=== PATIENT | male | born 1955 | race American Indian/Alaskan Native ===

== ENCOUNTER 2022-02-08 06:02 | Day surgery (SDC) | payer MEDICARE ==
[2022-02-08] MEDS ORDERED: LACTATED RINGERS 1,000 ML ONE (07:22)
[2022-02-08] MEDS ORDERED: fentaNYL 100 MCG/2 ML INJ ONE (07:34)
[2022-02-08] MEDS ORDERED: LIDOCAINE MPF (2%) 20 MG/1 ML VIAL 5 ML ONE (07:34)
[2022-02-08] MEDS ORDERED: propofoL 200 MG/20 ML VIAL IV ONE (07:34)
[2022-02-08] MEDS ORDERED: ONDANSETRON 4 MG/2 ML INJ ONE (07:34)
[2022-02-08] MEDS ORDERED: HYDROmorphone 0.5 MG/0.5 ML INJ IV PRN ×2 (07:37)
--- NOTE | 2022-02-08 07:37 | Anesthesia Day of Surgery ---
Anesthesia Day of Surgery - Day of Surgery Patient Examined: Yes Patient H&P Reviewed: Yes Patient is NPO: Yes
--- NOTE | 2022-02-08 07:40 | Anesthesia Consultation ---
Anesthesia Consult and Med Hx Date of service: 02/08/22 - Airway Anesthetic Teeth Evaluation: Crowns ROM Head & Neck: Adequate Mental/Hyoid Distance: Adequate Mallampati Class: Class II Intubation Access Assessment: Good - Pre-Operative Health Status ASA Pre-Surgery Classification: ASA3 Proposed Anesthetic Plan: General - Pulmonary Hx Smoking: Yes (1/2 PPD X 40 YRS) Hx Respiratory Symptoms: Yes (Room air SpO2 88-89%) Hx Sleep Apnea: Yes (DX SLEEP APNEA, NO CPAP USE.) - Cardiovascular System Hx Hypertension: Yes (X 30 YRS) - Central Nervous System Hx Back Pain: Yes (HX NECK AND BACK PAIN- S/P SURGERIES) Hx Psychiatric Problems: No - Gastrointestinal Hx Gastroesophageal Reflux Disease: No - Endocrine Hx Renal Disease: Yes (Stones) Hx Non-Insulin Dependent Diabetes: Yes - Hematic Hx Anemia: No - Other Systems Hx Cancer: No Hx Obesity: Yes
[2022-02-08] MEDS ORDERED: LACTATED RINGERS 1,000 ML IV SCH (08:00)
[2022-02-08] MEDS ORDERED: MIDAZOLAM 2 MG/2 ML INJ IV NR (08:00)
[2022-02-08] MEDS ORDERED: ONDANSETRON 4 MG/2 ML INJ IV PRN (08:00)
[2022-02-08] MEDS ORDERED: ceFAZolin/Water 2 GM/20 ML 2 GM/20 ML SYRINGE IV ONE (08:20)
[2022-02-08] MEDS ORDERED: WATER FOR IRRIG STERILE 2000 ML IR ONE (08:45)
--- NOTE | 2022-02-08 09:16 | Short Stay Summary ---
Short Stay Documentation Date of service: 02/08/22 - History H&P: obtained from office - Allergies and Medications Current Medications: Allergies No Known Allergies Allergy (Verified 02/07/22 10:26) Home Medications Medication Instructions Recorded Confirmed Last Taken Type Cholecalciferol (Vitamin D3) 50,000 unit PO QWEEK 02/07/22 02/07/22 Unknown History [Vitamin D3 50,000UNIT CAP] Febuxostat [Uloric] 80 mg PO QDAY 02/07/22 02/07/22 Unknown History Losartan [Cozaar] 40 mg PO QDAY 02/07/22 02/07/22 Unknown History Oxycodone HCl/Acetaminophen 1 each PO PRN PRN 02/07/22 02/07/22 Unknown History [Oxycodone-Acetaminophen 10-325] Tamsulosin [Flomax] 0.4 mg PO QDAY 02/07/22 02/07/22 Unknown History amLODIPine [Norvasc] 10 mg PO DAILY 02/07/22 02/07/22 Unknown History atenoloL [Tenormin] 50 mg PO DAILY 02/07/22 02/07/22 Unknown History hydrALAZINE [Apresoline TAB] 300 mg PO TID 02/07/22 02/07/22 Unknown History metFORMIN [Glucophage] 850 mg PO BID 02/07/22 02/07/22 Unknown History Active Medications Hydromorphone HCl (Hydromorphone 0.5 Mg/0.5 Ml Inj) 0.25 mg IV Q10MIN PRN PRN Reason: Pain, Moderate (4-6) Stop: 02/08/22 20:00 Hydromorphone HCl (Hydromorphone 0.5 Mg/0.5 Ml Inj) 0.5 mg IV Q10MIN PRN PRN Reason: Pain , Severe (7-10) Stop: 02/08/22 20:00 Lactated Ringer's (Lactated Ringers) 1,000 mls @ 125 mls/hr IV DIRECT SUZANNE Midazolam HCl (Midazolam 2 Mg/2 Ml Inj) 2 mg IV PREOP NR Stop: 02/08/22 23:59 Ondansetron HCl (Ondansetron 4 Mg/2 Ml Inj) 4 mg IV ONCE PRN PRN Reason: Nausea And Vomiting - Brief post op/procedure progress note Date of procedure: 02/08/22 Pre-op diagnosis: left ureteral stone Post-op diagnosis: same Procedure: cysto, left ureteroscopy basket stone stent with external string Anesthesia: TI Surgeon: WILLIAM PLASCENCIA Condition: stable - Hospital course Hospital course: natalie rod, post op info on chart - Disposition Condition at discharge: Stable Disposition: 01 HOME / SELF CARE / HOMELESS Short Stay Discharge Plan Follow up with: KAMERON ZUNIGA MD [Primary Care Provider] - 7 Days
--- NOTE | 2022-02-08 09:53 | Fluoroscopy Report ---
FLUOROSCOPY RETROGRADE UROGRAPHY INDICATION: LEFT URETRAL STONE. COMPARISON: None. IMPRESSION: 0.4 minutes of fluoroscopy time was provided by radiology during retrograde urography. 4 fluoroscopic images are presented. The right retrograde pyelogram is unremarkable with no evidence for filling defect or abnormal dilatation. Only the distal left ureter is opacified with contrast. Th ere appears to be an obstructing stone in the distal left ureter approximately 5 cm from the left UVJ . Subsequent image demonstrates placement of a left ureteral stent which appears in good position. Pl ease correlate with the procedural report as needed. Signer Name: Omar Sheriff Jr, MD Signed: 02/08/2022 9:49 AM Workstation Name: [id number]
--- NOTE | 2022-02-08 09:58 | Operative Report ---
DATE OF SURGERY: 02/08/2022 PREOPERATIVE DIAGNOSIS: Left ureteral stone, 5 mm. POSTOPERATIVE DIAGNOSIS: Left ureteral stone, 5 mm. PROCEDURE PERFORMED: Cystoscopy, bilateral retrograde pyelograms, left ureteroscopy, basket stone extraction with a 6-Albanian 24 cm double-J stent with an external string. SURGEON: Anuj Phelps MD ANESTHESIA: General. ESTIMATED BLOOD LOSS: Minimal. FLUIDS: Crystalloid. COMPLICATIONS: No complications. INDICATIONS: This patient is a 67-year-old gentleman known to our service, history of stones in the past, presented to the office approximately a week ago with left flank pain. The patient had CT abdomen and pelvis, was found to have a 5 mm stone. Discussed options, he agreed to proceed with surgical intervention. Risks, benefits, complications were explained. DESCRIPTION OF PROCEDURE: The patient was taken to the operative suite, placed in a supine position. After adequate general anesthesia, placed in the dorsal lithotomy position, prepped and draped in a sterile fashion. Pancystourethroscopy was performed with a 22-Albanian Storz cystoscope, no urethral abnormalities. His prostate displayed some mild trilobar obstruction. Bladder, no tumors or stones were noted. He did have some mild trabeculation. Both ureteral orifices in normal position. Bilateral retrograde pyelograms were obtained with an 8-Albanian Woodward catheter and 8 mL of contrast. No filling defects or obstruction on the right. On the left side, upon shooting the retrograde, saw some debris, did not do a full retrograde. The patient's temperature preop was 98. On the left retrograde, could see a filling defect in the distal ureter. A 0.035 Glidewire was placed. At this point, it appeared that the debris was just old blood. There were no signs of infection; however, I did send a culture. Two wires were placed under fluoroscopic guidance. Rigid ureteroscopy was performed. A yellow stone was appreciated. It was engaged with an 11-Albanian Luke basket and extracted without difficulty. A 6-Albanian 24 cm double-J stent with an external string was left indwelling. Rectal exam was benign. He was extubated and taken to recovery room. He will go home on [email or web address] and follow up in the office. TID: [id number] RECEIPT: [id number] HERMINIO/ENRIQUE
[2022-02-08 10:55] VITALS: BP 155/70
--- NOTE | 2022-02-08 11:41 | Post Anesthesia Evaluation ---
- Post Anesthesia Evaluation Patient Participated: Yes Airway Patent: Yes Stable Respiratory Function: Yes Nausea/Vomiting: No Temp > 96.8F: Yes Pain Manageable: Yes Adequeate Hydration: Yes Anesthesia Complications: No Block Receding Appropriately: Not Applicable Patient on Ventilator: No
== END 2022-02-08 10:45 | disposition home or self-care (01) ==
LOC: OR 06:02
PROVIDERS: ATTEND Urology
DX: N20.1 Calculus of ureter (principal); E11.9 Type 2 diabetes mellitus without complications; I10 Essential (primary) hypertension; G47.30 Sleep apnea, unspecified; E66.9 Obesity, unspecified; F17.210 Nicotine dependence, cigarettes, uncomplicated; Z79.899 Other long term (current) drug therapy; Z79.84 Long term (current) use of oral hypoglycemic drugs; Z90.49 Acquired absence of other specified parts of digestive tract; Z68.33 Body mass index [BMI] 33.0-33.9, adult; Z98.890 Other specified postprocedural states
CPT/HCPCS: 52332; 52352; 74420; 82962; 87086; C1758; C1769; C1889; J0690; J2250; J2405; J2704; J3010; J7120; Q9967